=== PATIENT | female | born 1995 | race American Indian/Alaskan Native ===

== ENCOUNTER 2021-03-02 20:12 | Emergency (ER) | payer SELFPAY ==
[2021-03-02] MEDS ORDERED: cephALEXin 500 MG CAP PO ONE (22:19)
[2021-03-02] MEDS ORDERED: LIDOCAINE-MPF (1%) 10 MG/1 ML VIAL 5 ML INFILTRATI ONE (22:19)
[2021-03-02] MEDS ORDERED: TETANUS,DIPH,PERTUSS(ACELL) VACCINE 0.5 ML SYRINGE IM ONE (22:19)
[2021-03-02] MEDS ORDERED: IBUPROFEN 600 MG TAB PO ONE (22:19)
--- NOTE | 2021-03-02 23:01 | XRay Report ---
LEFT HAND 3 VIEWS INDICATION / CLINICAL INFORMATION: laceration PIP COMPARISON: None available. FINDINGS: BONES / JOINT(S): No acute fracture or subluxation. No significant arthritis. SOFT TISSUES: Laceration over the proximal interphalangeal joint of the second digit. No radiopaque f oreign body. ADDITIONAL FINDINGS: None. Signer Name: Car Giraldo MD Signed: 03/02/2021 10:57 PM Workstation Name: [id number]
--- NOTE | 2021-03-03 00:16 | Emergency Department Report ---
Upper Extremity - [facility] Chief Complaint: Wound/Laceration Stated Complaint: dorsal left index finger laceration Upper Extremity: Left Index Finger (dorsal left index finger laceration wound) Occurred When: 1 Day Mechanism: Other (laceration of left index finger ) Severity: severe Symptoms: Yes Pain with Movement, Yes Laceration or Abrasion (Dorsal left index finger laceration), No Deformity, No Limited Range of Movement, No Numbness, No Swelling, No Bruising/Ecchymosis Other History: Patient is a 25-year-old -Polish female with no past medical history presents to the ED with complaint of acute onset painful bleeding dorsal left index finger laceration wound after she accidentally cut her left index finger when cutting some fabric about 24 hours ago. Patient states that she called the EMS crew to her apartment but the EMS crew advised to not come to the ED. Patient states that the pain and the bleeding has been persistent and since the injury occurred 24 hours ago. Patient states that she is not up-to-date with her tetanus vaccinations. Patient denies fever, chills, nausea and vomiting, numbness and tingling or weakness of left hand, dizziness, syncope, fall or neck pain. ED Review of Systems ROS: Stated complaint: Other details as noted in HPI Constitutional: denies: chills, fever Eyes: denies: eye pain, eye discharge, vision change ENT: denies: ear pain, throat pain Respiratory: denies: cough, shortness of breath, wheezing Cardiovascular: denies: chest pain, palpitations Endocrine: no symptoms reported Gastrointestinal: denies: abdominal pain, nausea, diarrhea Genitourinary: denies: urgency, dysuria, discharge Musculoskeletal: arthralgia (Dorsal left index finger laceration wound with pain). denies: back pain, joint swelling Skin: other (Bleeding dorsal left index finger laceration wound with pain). denies: rash, lesions Neurological: denies: headache, weakness, paresthesias Psychiatric: denies: anxiety, depression Hematological/Lymphatic: denies: easy bleeding, easy bruising ED Past Medical Hx - Past Medical History Hx Asthma: Yes - Social History Smoking Status: Current Every Day Smoker Substance Use Type: Alcohol - Medications Home Medications: Home Medications Medication Instructions Recorded Confirmed Last Taken Type Famotidine [Pepcid] 20 mg PO BID #40 tablet 02/20/15 Unknown Rx Promethazine [Phenergan TAB] 25 mg PO Q6HR PRN #20 tab 02/20/15 Unknown Rx medroxyPROGESTERone ACETATE 10 mg PO QDAY #10 tablet 02/20/15 Unknown Rx [Provera] Mag Hydrox/Aluminum Hyd/Simeth 20 ml PO QID PRN #1 bottle 02/23/18 Unknown Rx [Maalox Advanced Suspension] Nitrofurantoin Mcduffie/M-Cryst 100 mg PO Q12HR #14 capsule 02/23/18 Unknown Rx [Macrobid CAP] Ondansetron [Zofran Odt] 4 mg PO Q8HR PRN #20 tab.rapdis 02/23/18 Unknown Rx Ibuprofen [Motrin] 800 mg PO Q8HR PRN #30 tablet 03/03/21 Unknown Rx Sulfamethoxazole/Trimethoprim 1 each PO Q12H #20 tablet 03/03/21 Unknown Rx [Bactrim DS TAB] Upper Extremity Exam - Exam General: Vital signs noted. No distress. Alert and acting appropriately. Head and Torso: No HEENT Abnormality, No Neck Tenderness, No Chest/Lungs Abnormality, No Abdominal Tenderness, No Back Tenderness Shoulder Exam: Yes Normal Range of Motion in Shoulder, No Shoulder Tenderness, No Clavicle Tenderness, No Shoulder Deformity, No AC Joint Tenderness Arm Exam: No Arm/Humerus Tenderness, No Arm Deformity Elbow: No Elbow Tenderness, No Normal Range of Motion in Elbow, No Elbow Deformity Forearm: No Forearm Tenderness, No Forearm Deformity, No Pain with Pronation, No Pain with Supination Wrist: Yes Normal ROM in Wrist, No Wrist Tenderness, No Wrist Deformity, No Snuffbox Tenderness, No Pain with Axial Thumb Compression Hand: Yes Hand Tenderness (Dorsal left index finger 5 cm laceration wound), Yes Digit Tenderness (Palpable tender dorsal left index finger due to a 5 cm laceration wound), Yes Normal ROM in Digit(s), No Hand Deformity, No Digit(s) Deformity, No Tendon Dysfunction CMS Exam: Yes Broken Skin (Bleeding 5 cm laceration wound on dorsal left index finger), Yes Normal Distal Pulses, Yes Normal Capillary Refill, Yes Normal Distal Sensation - Laceration /Wound Repair Left Dorsal Finger Wound Location: upper extremity (Dorsal left index finger laceration wound) Wound Length (cm): 5 Wound's Depth, Shape: superficial, linear Wound Explored: contaminated Irrigated w/ Saline (ccs): 200 Betadine Prep?: Yes Anesthesia: 1% Lidocaine Volume Anesthetic (ccs): 5 Wound Debrided: extensive Wound Repaired With: sutures (Loosely applied due to the duration since the laceration wound occurred which is approximately 24 hours) Suture Size/Type: 4:0, proline Number of Sutures: 9 Layer Closure?: No Sterile Dressing Applied?: No Progress: In the ED, the wound was extensively debrided with normal saline and Betadine solutions. The left index finger was anesthetized by digital block method using lidocaine 1% solution for a total of 5 cc. When anesthesia was fully achieved, the wound was loosely approximated in order to allow it to drain given the fact that it had been about 24 hours since the injury occurred. Patient tolerated the procedure well. The wound was then dressed appropriately with 4 x 4 gauze and Kerlix. Patient was discharged home on pain medications and prophylactic antibiotics and was advised to return to the ED immediately if her symptoms get worse, otherwise follow-up with her primary care physician in 5 to 7 days for reevaluation. Patient was also advised to return to the ED or to her primary care physician in 12 to 14 days for suture removal. ED Medical Decision Making - Radiology Data [facility] [address] [place] [address] XRay Report Signed Patient: ASGAR CRUM MR#: [id number] : 1995 Acct:[id number] Age/Sex: 25 / F ADM Date: 03/02/21 Loc: ED Attending Dr: Ordering Physician: COLUMBA AYALA Date of Service: 03/02/21 Procedure(s): XR hand 3+V LT Accession Number(s): [id number] cc: COLUMBA AYALA Fluoro Time In Minutes: LEFT HAND 3 VIEWS INDICATION / CLINICAL INFORMATION: laceration PIP COMPARISON: None available. FINDINGS: BONES / JOINT(S): No acute fracture or subluxation. No significant arthritis. SOFT TISSUES: Laceration over the proximal interphalangeal joint of the second digit. No radiopaque foreign body. ADDITIONAL FINDINGS: None. Signer Name: Car Giraldo MD Signed: 03/02/2021 10:57 PM Workstation Name: [id number] Transcribed By: ES Dictated By: Car Giraldo MD Electronically Authenticated By: Car Giraldo MD Signed Date/Time: 03/02/212256 DD/ 54 TD/TT: Print Cancel - Medical Decision Making This is a 25-year-old -Polish female with no past medical history presents to the ED with complaint of acute onset painful bleeding dorsal left index finger laceration wound after she accidentally cut her left index finger when cutting some fabric about 24 hours ago. Patient states that she called the EMS crew to her apartment but the EMS crew advised to not come to the ED. Patient states that the pain and the bleeding has been persistent and since the injury occurred 24 hours ago. Patient states that she is not up-to-date with her tetanus vaccinations. The left hand x-ray showed no acute fractures or subluxations. In the ED, patient is alert and oriented x3 and is not in any distress. Patient was treated in the ED for pain and also given initial oral antibiotics as well as booster tetanus vaccination. In the ED, the wound was extensively debrided with normal saline and Betadine solutions. The left index finger was anesthetized by digital block method using lidocaine 1% solution for a total of 5 cc. When anesthesia was fully achieved, the wound was loosely approximated in order to allow it to drain given the fact that it had been about 24 hours since the injury occurred. Patient tolerated the procedure well. The wound was then dressed appropriately with 4 x 4 gauze and Kerlix. Patient was discharged home on pain medications and prophylactic antibiotics and was advised to return to the ED immediately if her symptoms get worse, otherwise follow-up with her primary care physician in 5 to 7 days for reevaluation. Patient was also advised to return to the ED or to her primary care physician in 12 to 14 days for suture removal. - Differential Diagnosis Finger laceration; finger contusion; hand contusion; wound infection Critical care attestation.: If time is entered above; I have spent that time in minutes in the direct care of this critically ill patient, excluding procedure time. ED Disposition Clinical Impression: Laceration of left index finger w/o foreign body w/o damage to nail Qualifiers: Encounter type: initial encounter Qualified Code(s): S61.211A - Laceration without foreign body of left index finger without damage to nail, initial encounter Disposition: 01 HOME / SELF CARE / HOMELESS Is pt being admited?: No Does the pt Need Aspirin: No Condition: Stable Instructions: Laceration Care, Adult, [id number], Sutured Wound Care, [id number] Additional Instructions: Take medication with food, drink plenty of fluids and follow-up with your primary care physician in 7 to 10 days for reevaluation. Return to the ED immediately if symptoms get worse. Otherwise return to the ED or to your primary care physician in 12 to 14 days for suture removal Prescriptions: Sulfamethoxazole/Trimethoprim [Bactrim DS TAB] 1 each PO Q12H #20 tablet Ibuprofen [Motrin] 800 mg PO Q8HR PRN #30 tablet PRN Reason: Pain , Severe (7-10) Referrals: [facility] [Provider Group] - 7-10 days Time of Disposition: 00:14 Print Language: MONGOLIAN
[2021-03-03 00:52] VITALS: BP 126/74
== END 2021-03-03 00:50 | disposition home or self-care (01) ==
LOC: ED 20:12
DX: S61.211A Laceration without foreign body of left index finger without damage to nail, initial encounter (principal); J45.909 Unspecified asthma, uncomplicated; F17.200 Nicotine dependence, unspecified, uncomplicated; W45.8XXA Other foreign body or object entering through skin, initial encounter; Y93.89 Activity, other specified; Y92.89 Other specified places as the place of occurrence of the external cause; Y99.8 Other external cause status
CPT/HCPCS: 12042; 73130; 90471; 90715; 99283; J3490